=== PATIENT | male | born 1940 | race Caucasian/White ===

== ENCOUNTER 2016-09-04 10:36 | Day surgery (SDC) | payer MEDICARE ==
[~2016-09-04] VITALS: Ht 182.9 cm; Wt 83.6 kg
[~2016-09-04 10:36] MED LIST: AMOX1TAB12 PO; ASPI-621 PO; Amiodarone Hcl PO; BRIN8DRO EACHEYE; DILT120C9 PO; DOCU-30 PO; DORZ10DR3 EACHEYE; ESCI10TA PO; GUAI200T3 PO; LEVO25TA4 PO; LEXAPRO PO; MELA3TAB PO; QUET25TA PO; SIMV20TA3 PO; TADA5TAB2 PO; TAMS-11 PO; TEST2.5G5 TP; TIMO5DRO5 RIGHTEYE; WARF1TAB7 PO
[2016-09-04] MEDS ORDERED: ATOR10TA PO (11:28)
[2016-09-04] MEDS ORDERED: MAGN400T36 PO (11:28)
[2016-09-04] MEDS ORDERED: POTA20PA PO (11:28)
[2016-09-04] MEDS ORDERED: MELA5CAP PO (11:28)
[2016-09-04] MEDS ORDERED: ASPI-515 PO (11:28)
[2016-09-04] MEDS ORDERED: AMIO100T4 PO (11:28)
[2016-09-04] MEDS ORDERED: DILT-4 PO (11:28)
[2016-09-04] MEDS ORDERED: DOCU100C8 PO (11:28)
[2016-09-04] MEDS ORDERED: CARV6.252 PO (11:28)
[2016-09-04] MEDS ORDERED: FURO40TA6 PO (11:28)
[2016-09-04] MEDS ORDERED: WARF3TAB PO (11:28)
[2016-09-04] MEDS ORDERED: ESCI10TA10 PO (11:28)
[2016-09-04 11:29] LABS: BLOOD UREA NITROGEN 20 mg/dL (7-18)
[2016-09-04] MEDS ORDERED: SODIUM CHLORIDE FLUSH 10ML SYR IVF SCH (21:00)
== END 2016-09-04 13:00 | disposition home or self-care (01) ==
LOC: CACL 10:36
PROVIDERS: ATTEND Internal Medicine Cardiovascular Disease
DX: I48.91 Unspecified atrial fibrillation (principal); I34.0 Nonrheumatic mitral (valve) insufficiency; I10 Essential (primary) hypertension; I25.10 Atherosclerotic heart disease of native coronary artery without angina pectoris; F41.1 Generalized anxiety disorder; H40.9 Unspecified glaucoma; Z95.1 Presence of aortocoronary bypass graft; G43.809 Other migraine, not intractable, without status migrainosus; M51.36 Other intervertebral disc degeneration, lumbar region
CPT/HCPCS: 36415; 80048; 85025; 85610; 92960; 93005

== ENCOUNTER 2016-10-05 08:23 | Day surgery (SDC) | payer MEDICARE ==
[~2016-10-05] VITALS: Ht 180.3 cm; Wt 80.5 kg
[~2016-10-05 08:23] MED LIST changes: +AMIO100T4 PO; +ASPI-515 PO; +ATOR10TA PO; +CARV6.252 PO; +DILT-4 PO; +DOCU100C8 PO; +ESCI10TA10 PO; +FURO40TA6 PO; +MAGN400T36 PO; +MELA5CAP PO; +POTA20PA PO; +WARF3TAB PO
[2016-10-05] MEDS ORDERED: SODIUM CHLORIDE 0.9% 500 ML IV PRN (08:47)
[2016-10-05 09:05] VITALS: BP 121/79
[2016-10-05 09:20] LABS: BLOOD UREA NITROGEN 21 mg/dL (7-18)
[2016-10-05] MEDS ORDERED: TEST2.5G3 TP (09:21)
[2016-10-05] MEDS ORDERED: AMIO200T42 PO (09:21)
[2016-10-05] MEDS ORDERED: PROPOFOL 10 MG/ML, 20ML ONE (10:51)
[2016-10-05] MEDS ORDERED: AMIO400T4 PO (11:53)
== END 2016-10-05 12:25 | disposition home or self-care (01) ==
LOC: CACL 08:23
PROVIDERS: ATTEND Internal Medicine Cardiovascular Disease
DX: I48.0 Paroxysmal atrial fibrillation (principal); I34.0 Nonrheumatic mitral (valve) insufficiency; I48.92 Unspecified atrial flutter; I25.10 Atherosclerotic heart disease of native coronary artery without angina pectoris; E78.5 Hyperlipidemia, unspecified; G43.809 Other migraine, not intractable, without status migrainosus; M51.36 Other intervertebral disc degeneration, lumbar region; M19.90 Unspecified osteoarthritis, unspecified site; E03.9 Hypothyroidism, unspecified; H40.9 Unspecified glaucoma; F41.1 Generalized anxiety disorder; Z95.1 Presence of aortocoronary bypass graft; Z87.891 Personal history of nicotine dependence
CPT/HCPCS: 36415; 80048; 92960; J2704

== ENCOUNTER → 2018-09-01 | Outpatient (CLI) | payer MEDICARE ==
[~2018-09-01] MED LIST changes: +AMIO200T42 PO; +AMIO400T5 PO; -ASPI-621 PO; +ASPI81TA45 PO; -DILT-4 PO; +DILT120C88 PO; +DOCU-131 PO; -DOCU-30 PO; +DOCU100C33 PO; -DOCU100C8 PO; +DORZ10DR26 EACHEYE; -DORZ10DR3 EACHEYE; -MELA3TAB PO; +MELA3TAB2 PO; +OMNIPAQUE 350 MG/ML, 100ML BOTTLE ONE; -POTA20PA PO; +POTA20PA31 PO; -QUET25TA PO; +QUET25TA7 PO; +TEST2.5G3 TP; -WARF1TAB7 PO; +WARF1TAB74 PO
== END | disposition home or self-care (01) ==
LOC: CFH 09:06
PROVIDERS: ATTEND Family Medicine
DX: R06.6 Hiccough (principal)
CPT/HCPCS: 71260; 74160; Q9967

== ENCOUNTER → 2019-09-03 | Outpatient (CLI) | payer MEDICARE ==
[~2019-09-03] MED LIST changes: +DILT120C48 PO; +DILT120C83 PO; -DILT120C88 PO; -DILT120C9 PO; -GUAI200T3 PO; +GUAI200T37 PO; -MELA3TAB2 PO; +MELA3TAB56 PO; -OMNIPAQUE 350 MG/ML, 100ML BOTTLE ONE; +SIMV20TA19 PO; -SIMV20TA3 PO; -TEST2.5G5 TP; +TEST2.5G9 TP
== END | disposition home or self-care (01) ==
LOC: CFH 12:42
PROVIDERS: ATTEND Internal Medicine Cardiovascular Disease
DX: I08.8 Other rheumatic multiple valve diseases (principal); I48.0 Paroxysmal atrial fibrillation
CPT/HCPCS: 93306

== ENCOUNTER → 2020-11-15 | Outpatient (CLI) | payer MEDICARE ==
[~2020-11-15] MED LIST changes: -ASPI-515 PO; +ASPI-963 PO; -ESCI10TA PO; +ESCI10TA97 PO; +MELA3TAB31 PO; -MELA3TAB56 PO
== END | disposition home or self-care (01) ==
LOC: CFH 08:32
PROVIDERS: ATTEND Internal Medicine Cardiovascular Disease
DX: I08.2 Rheumatic disorders of both aortic and tricuspid valves (principal); I48.0 Paroxysmal atrial fibrillation
CPT/HCPCS: 93306